=== PATIENT | male | born 1970 | race Caucasian/White ===

== ENCOUNTER → 2017-09-04 | Outpatient (CLI) | payer OTHER ==
--- NOTE | 2017-09-04 08:50 | DIAGNOSTIC IMAGING REPORT ---
SCROTAL ULTRASOUND CLINICAL HISTORY: Spermatocele. COMPARISON STUDY: Scrotal ultrasound July 22, 2015.. TECHNIQUE: Grayscale and color and duplex Doppler sonography of the scrotum was performed. FINDINGS: The right testis measures 4.7 x 2.4 x 3.8 cm and the left testis measures 5.2 x 2.2 x 2.9 cm. There is color flow within each testis. There is a calcification within the left testis. A few small bilateral epididymal cysts are noted. Note is made of a 7 x 5.3 x 3.4 cm cystic abnormality lateral to the right testis with low level internal echoes. This has increased in size since exam of July 22, 2015 when it measured 4.8 x 2.5 x 3.9 cm. IMPRESSION: 1. Interval increase in size of the large right spermatocele since ultrasound of July 22, 2015. 2. No testicular mass. No evidence for testicular torsion. Electronically signed by: Richard Deal M.D. 09/04/2017 8:49 AM Dictated Date/Time: 09/04/2017 8:46 AM
== END | disposition home or self-care (01) ==
LOC: C.ULTRBC 07:32
PROVIDERS: ATTEND Urology
DX: N43.40 Spermatocele of epididymis, unspecified (principal)

== ENCOUNTER → 2017-10-25 | Day surgery (SDC) | payer OTHER ==
[2017-10-10 08:59] VITALS: BMI 33.0
--- NOTE | 2017-10-10 09:24 | PAT Medication Instructions ---
Service Date Oct 10, 2017. Current Home Medication List Cyanocobalamin (Vitamin B 12), 1 TAB PO QAM Diphenhydramine Hcl (Sleep) (Sleep Aid), 1 TAB PO QPM Magnesium (Magnesium), 1 TAB PO QAM Potassium (Potassium), 2 TAB PO QAM Turmeric (Curcuma Longa) (Curcumin 95), 750 MG PO QAM Medication Instructions For Your Scheduled Surgery - Hold the following medications 2 weeks prior to surgery: Turmeric (Curcuma Longa) (Curcumin 95), 750 MG PO QAM - Hold the following medications the morning of surgery: Magnesium (Magnesium), 1 TAB PO QAM Potassium (Potassium), 2 TAB PO QAM Cyanocobalamin (Vitamin B 12), 1 TAB PO QAM - Take the following medications as scheduled the night before surgery: Diphenhydramine Hcl (Sleep) (Sleep Aid), 1 TAB PO QPM If you have any questions please call us at [phone] or [phone] or [phone]
--- NOTE | 2017-10-10 09:55 | DIAGNOSTIC IMAGING REPORT ---
CHEST 2 VIEWS ROUTINE CLINICAL HISTORY: Preoperative chest COMPARISON STUDY: No previous studies for comparison. FINDINGS: The cardiac and mediastinal contours are normal. There is no evidence of focal pulmonary consolidation. There is no evidence of failure. No pleural effusions are visualized.[ IMPRESSION: No active disease in the chest. Electronically signed by: Eleazar Nagel M.D. 10/10/2017 9:53 AM Dictated Date/Time: 10/10/2017 9:53 AM
[2017-10-10 10:46] LABS: BASO % 1.4 %; BASO ABS # 0.07 K/uL (0-0.2); EOS % 2.5 %; EOS ABS # 0.13 K/uL (0-0.5); HEMATOCRIT 41.9 % (42-52); HEMOGLOBIN 14.2 g/dL (14.0-18.0); IG# 0.01 K/uL (0.00-0.02); LYMPH % 23.6 %; LYMPH ABS # 1.22 K/uL (1.2-3.4); MEAN CELL VOLUME 84.5 fL (80-100); MEAN CORPUSCULAR HEMOGLOBIN 28.6 pg (25-34); MEAN CORPUSCULAR HGB CONC 33.9 g/dl (32-36); MEAN PLATELET VOLUME 11.3 fL (7.4-10.4); MONO % 7.4 %; MONO ABS # 0.38 K/uL (0.11-0.59); NEUT % 64.9 %; NEUT ABS # 3.36 K/uL (1.4-6.5); PLATELET COUNT 149 K/uL (130-400); RED CELL DISTRIBUTION WIDTH CV 13.9 % (11.5-14.5); RED CELL DISTRIBUTION WIDTH SD 42.7 fL (36.4-46.3); WHITE BLOOD COUNT 5.17 K/uL (4.8-10.8)
[2017-10-10 10:57] LABS: CALCIUM 9.2 mg/dl (8.5-10.1); CREATININE 0.82 mg/dl (0.60-1.40); POTASSIUM 4.6 mmol/L (3.5-5.1)
[~2017-10-25] VITALS: Ht 180.3 cm; Wt 108.3 kg
[~2017-10-25] MED LIST: ATROPINE SULFATE 0.1 MG/ML 5ML SYR IV PRN; BUPIVACAINE 0.5 % 5 MG/1 ML MPF 30ML VIAL ONE; CEFAZOLIN 2000MG IV PUSH 15 ML IV SCH; CYAN1LOZ PO; DEXAMETHASONE SOD INJ 4 MG/ML VIAL ONE; DIPH1TAB98 PO; EpHEDrine SULFATE INJ 50 MG/ML AMP IV PRN; FENTANYL CITRATE INJ 50 MCG/1 ML 2 ML VIAL ONE; GLYCOPYRROLATE INJ 0.2 MG/ML VIAL ONE; HYDR-3714 PO; HYDROCODONE/ACETAMIN 5/325MG TAB ONE; HYDROCODONE/ACETAMINOPHEN 7.5/325MG TAB PO PRN; HYDROmorphone INJ 1 MG/ML SYR IV PRN; LABETALOL HCL IV 5 MG/ML 20ML IV PRN; LACTATED RINGER'S 1000ML 1,000 ML IV SCH; LIDOCAINE HCL 2% 2 ML VIAL (20MG/ML) ONE; MAGN250T9 PO; MEPERIDINE HCL 25 MG/ML CARP IV PRN; MIDAZOLAM HCL 1 MG/ML 2ML VIAL ONE; ONDANSETRON INJ 2 MG/ML 2 ML VIAL IV PRN; ONDANSETRON INJ 2 MG/ML 2 ML VIAL ONE; POTA99TA PO; PROPOFOL IV EMULSION 10 MG/ML 20 ML VIAL IV ONE; TURM500C2 PO
[2017-10-25 05:34] VITALS: BP 147/94; PULSE 69; TEMP 36.9; O2SAT 94; Ht 180.3 cm; Wt 108.3 kg
--- NOTE | 2017-10-25 06:45 | History & Physical Bridge Note ---
H&P Re-Evaluation Bridge Note: I have examined the patient, reviewed the History & Physical and in the interval since the performance of the History & Physical I have noted the following changes of clinical significance: No changes noted
--- NOTE | 2017-10-25 06:55 | Discharge Instructions ---
Discharge Instructions Date of Service Oct 25, 2017. Admission Reason for Admission: Spermatocele Discharge Discharge Diagnosis / Problem: Right Hydrocele Discharge Goals Goal(s): Decrease discomfort, Improve function Activity Recommendations Activity Limitations: per Instructions/Follow-up section Lifting Limitations: no more than 25 pounds, gradually increase as tolerated, until after follow-up appointment Exercise/Sports Limitations: gradually increase as tolerated, until after follow-up appointment Shower/Bathe: tomorrow . Instructions / Follow-Up Instructions / Follow-Up May have pelvic pain or discomfort. Monitor for fevers or chills. Okay to ice. Okay to shower tomorrow. Wash 2-3 x daily with warm soapy water. No overactivity or heavy lifting. Follow up in 4-5 days for drain removal. Bandage as needed. Current Hospital Diet Patient's current hospital diet: Discharge Diet Recommended Diet: Regular Diet Procedures Procedures Performed: Right Hydrocelectomy Pending Studies Studies pending at discharge: no Medical Emergencies . Who to Call and When: Medical Emergencies: If at any time you feel your situation is an emergency, please call 911 immediately. . Non-Emergent Contact Non-Emergency issues call your: Primary Care Provider, Urologist Call Non-Emergent contact if: you have a fever, temperature is above 101, temperature is above 101.5, your pain is not controlled, your pain is worsening , wound has increased drainage, wound has increased redness, wound has increased pain . . "Provider Documentation" section prepared by Thomas Goyal. .
--- NOTE | 2017-10-25 08:22 | [facility] Operative Report ---
Operative Report Operative Date Oct 25, 2017. Pre-Operative Diagnosis Right Hydrocele Post-Operative Diagnosis Same Procedure(s) Performed Right Hydrocelectomy Surgeon Jay Jay Estimated Blood Loss Minimal Findings Large right hydrocele Specimens Hydrocele Sac Drains Oscar midline base of scrotum Anesthesia Type General Complication(s) none Disposition Recovery Room / PACU Indications Large right hydrocele with bother. Risks and benefits discussed. Description of Procedure Patient was consented and brought back to the operating room. Patient was placed under anesthesia in the supine position. Patient was prepped and draped in the regular sterile fashion. A time out was completed. The midline raphe was assessed and an area 1 cm lateral to the raphe on the right was marked and local anesthetic placed. The skin was incised with a scalpel and the subcutaneous tissues were dissected with bovie cautery. The right testicle and hydrocele were delivered out of the scrotum. The area was assessed. The hydrocele sac was opened and fluid drained. The excess sac was trimmed and removed. The edges were oversewn behind the testicle and cord. The area was examined and all bleeding was controlled. No issues or concerns. Prior to opening the sac, all major landmarks were identified. The scrotum was assessed. No bleeding or areas of concern. The testicle was delivered into the cavity. The area was flushed. A cord block was completed. A oscar was placed and sutured into the dependent portion of the scrotum. A running vicryl suture was used to close subcutaneous and dartos tissues. A monocryl was used to close skin. Glue was placed on the wound. The patient was cleaned, aroused from anesthesia, and transferred to the pacu in stable condition having tolerated the procedure well with no complications. I was present and participated in all aspects of the procedure. I attest to the content of the Intraoperative Record and any orders documented therein. Any exceptions are noted below.
[2017-10-25] MEDS: FENTANYL CITRATE INJ 50 MCG/1 ML 2 ML VIAL IV PRN ×2 (08:35→08:45)
[2017-10-25 09:15] VITALS: BP 122/76; PULSE 91; TEMP 36.8; O2SAT 94
--- NOTE | 2017-10-25 09:23 | Anesthesiology Progress Note ---
Anesthesia Post Op Note Date & Time Oct 25, 2017 at 09:22 Vital Signs Pain Intensity: 2 Vital Signs Past 12 Hours Date Time Temp Pulse Resp B/P (MAP) Pulse Ox O2 Delivery O2 Flow Rate FiO2 10/25/17 09:01 36.7 10/25/17 09:00 86 13 105/70 94 10/25/17 09:00 85 13 10/25/17 08:56 125/79 10/25/17 08:55 91 18 92 10/25/17 08:55 92 18 10/25/17 08:50 89 16 128/75 94 10/25/17 08:50 90 16 10/25/17 08:45 88 13 122/77 94 10/25/17 08:45 89 13 10/25/17 08:41 128/78 10/25/17 08:40 92 13 10/25/17 08:40 93 13 96 10/25/17 08:35 93 12 10/25/17 08:35 93 12 136/74 94 10/25/17 08:33 120/84 10/25/17 08:25 36.2 105 12 143/91 95 Oxymask 7 10/25/17 05:34 36.9 69 18 147/94 (111) 94 Room Air Notes Mental Status: alert / awake / arousable, participated in evaluation Pt Amnestic to Procedure: Yes Nausea / Vomiting: adequately controlled Pain: adequately controlled Airway Patency, RR, SpO2: stable & adequate BP & HR: stable & adequate Hydration State: stable & adequate Anesthetic Complications: no major complications apparent
[2017-10-25 09:45] VITALS: BP 119/72; PULSE 72; TEMP 36.8; O2SAT 95
== END | disposition home or self-care (01) ==
LOC: C.ACU 05:11
PROVIDERS: ATTEND Urology
DX: N43.3 Hydrocele, unspecified (principal); N43.40 Spermatocele of epididymis, unspecified; Z87.891 Personal history of nicotine dependence